=== PATIENT | female | born 1930 | race Caucasian/White ===

== ENCOUNTER 2016-05-10 14:35 | Emergency (ER) | payer MEDICARE, OTHER ==
--- NOTE | 2016-05-21 21:14 | ER ---
ADMIT: 05/10/2016 RM/LOC: ER [facility] MR#: [id number] [address] [address] AR[place]IE [place]Y [address] [place] [address] Emergency Room Report SEX: F AGE: 85 : 1930 DATE: 05/10/2016 ADDENDUM: CHIEF COMPLAINT: Left hip pain. HISTORY OF PRESENT ILLNESS: This is an 85-year-old female who fell 2 days ago. She said she was sitting at a grocery store and in fact she was trying to move them over, and she just lost her balance and tipped forward and fell onto her left hip. She said it has been painful since, but she has been able to walk on it. She mostly has groin pain. X-ray was done of her pelvis and left hip. It is negative for any fracture, over-read by Dr. Baptiste. I am sending her home, having her take Tylenol as needed for pain and follow up with her PCP if worsen. CLAUDIA Beavers / Alphonse Baptiste MD / margarita JOB #: [id number] CC: Alphonse Baptiste MD, Attending Physician
[2016-05-25] MEDS ORDERED: DITROPAN XL5 MG PO (19:32)
[2016-05-25] MEDS ORDERED: FEMARA DPS2.5 MG PO (19:32)
[2016-05-25] MEDS ORDERED: ZOLOFT DPS100 MG PO (19:33)
[2016-05-25] MEDS ORDERED: PRAVACHOL40 MG PO (19:33)
[2016-05-25] MEDS ORDERED: XARELTO10 MG PO (19:33)
[2016-05-25] MEDS ORDERED: TOPROL XL DPS50 MG PO (19:33)
[2016-05-25] MEDS ORDERED: NEURONTIN DPS100 MG PO (19:33)
[2016-05-25] MEDS ORDERED: SENOKOT S1 TAB PO (19:33)
[2016-05-25] MEDS ORDERED: AMBIEN DPS5 MG PO (19:34)
[2016-05-25] MEDS ORDERED: TYLENOL DPS325 MG PO (19:34)
[2016-05-25] MEDS ORDERED: SURFAK DPS240 MG PO (19:34)
[2016-05-25] MEDS ORDERED: ULTRAM DPS50 MG PO (19:35)
== END 2016-05-10 19:35 | disposition home or self-care (01) ==
LOC: ER 14:35
DX: S70.02XA Contusion of left hip, initial encounter (principal); I10 Essential (primary) hypertension; Z85.3 Personal history of malignant neoplasm of breast; Z86.73 Personal history of transient ischemic attack (TIA), and cerebral infarction without residual deficits; Z79.82 Long term (current) use of aspirin; Z79.899 Other long term (current) drug therapy; W18.09XA Striking against other object with subsequent fall, initial encounter; Y92.009 Unspecified place in unspecified non-institutional (private) residence as the place of occurrence of the external cause

== ENCOUNTER 2016-05-21 08:42 | Inpatient (IN) | payer MEDICARE, OTHER ==
[~2016-05-21] VITALS: Ht 157.5 cm; Wt 54.6 kg
--- NOTE | ~2016-05-21 | CO ---
ADMIT: 05/21/2016 RM/LOC: 517 [facility] MR#: [id number] [address] [address] COONEYARNIE [place]ARAJ[place] [address] [place] [address] Consultation SEX: F AGE: 85 : 1930 DATE OF CONSULTATION: 05/21/2016 ATTENDING PHYSICIAN: Alix Simon MD CONSULTING PHYSICIAN: Austyn Velasquez MD SUBJECTIVE: The patient is an 85-year-old white female, who fell last week, had some left hip pain, was seen in the ER. X-rays were taken, she continued to have hip pain. Dr. Simon got an MRI scan, it showed a valgus impacted left femoral neck fracture. PHYSICAL EXAMINATION: The patient is comfortable. She has no shortening or external rotation of the hip. She is able to actually lift her leg, but she does have pain in the groin with any type of rotation. IMAGING DATA: MRI scan shows valgus impacted femoral neck fracture. ASSESSMENT AND PLAN: Left valgus impacted femoral neck fracture. At this point in time, we will plan left hip pinning. The patient understands the risks and benefits of the surgical intervention, and desires to proceed. Austyn Velasquez MD/ modl JOB #: [id number] CC: Alix Simon MD, Attending Physician Alix Simon MD, Family Physician
[2016-05-25] MEDS ORDERED: DITROPAN XL5 MG PO (19:32)
[2016-05-25] MEDS ORDERED: FEMARA DPS2.5 MG PO (19:32)
[2016-05-25] MEDS ORDERED: TOPROL XL DPS50 MG PO (19:33)
[2016-05-25] MEDS ORDERED: XARELTO10 MG PO (19:33)
[2016-05-25] MEDS ORDERED: ZOLOFT DPS100 MG PO (19:33)
[2016-05-25] MEDS ORDERED: SENOKOT S1 TAB PO (19:33)
[2016-05-25] MEDS ORDERED: PRAVACHOL40 MG PO (19:33)
[2016-05-25] MEDS ORDERED: NEURONTIN DPS100 MG PO (19:33)
[2016-05-25] MEDS ORDERED: SURFAK DPS240 MG PO (19:34)
[2016-05-25] MEDS ORDERED: AMBIEN DPS5 MG PO (19:34)
[2016-05-25] MEDS ORDERED: TYLENOL DPS325 MG PO (19:34)
[2016-05-25] MEDS ORDERED: ULTRAM DPS50 MG PO (19:35)
--- NOTE | 2016-05-26 23:26 | DS ---
ADMIT: 05/21/2016 RM/LOC: 517 [facility] MR#: [id number] 2620 [facility] [address] [place] [id number] ARNIE COONEY [address] [place] [address] Discharge Summary SEX: F AGE: 85 : 1930 ADMISSION DATE: 05/21/2016 DISCHARGE DATE: 05/24/2016 DIAGNOSES: 1. Left impacted femoral neck fracture status post pinning. 2. Hypertension. 3. Urine incontinence. 4. History of CVA (cerebrovascular accident). 5. Spinal stenosis. 6. History of breast cancer. PROCEDURE: Left hip pinning 05/21/2016. REASON FOR HOSPITALIZATION: Femoral neck fracture. See dictated H and P. LABORATORY AND X-RAY DATA: Sodium 143, potassium 4.1, chloride 108, CO2 26, BUN 24, creatinine 0.7, blood sugar 93, calcium 8.7, glucose 99 and 103 on Accu-Chek. White count 7.6, hemoglobin 11.7 down to 10.8, platelet count 215. Urine with some blood, otherwise negative. Urine culture was pending at the time of discharge but likely negative. Chest x-ray was negative. COURSE IN HOSPITAL: Arnie is admitted with left hip pain. Found to have a femoral neck fracture. She was taken to surgery on the day of admission, had a pinning performed. Postoperatively, her course was uncomplicated. She did have some episodes of elevated blood pressure likely pain related. Some urinary frequency and incontinence. She has a history of interstitial cystitis, this likely was exacerbated by her Sanchez catheter. Urinalysis was negative. Her hemoglobin was stable. She continued to improve, and on the final day of hospitalization, it was felt that she was not going to be able to care for herself at home as her is not able to assist due to his health problems. For this reason, she will be going to [facility] for continued therapy and strengthening. DISCHARGE INSTRUCTIONS: 1. Ditropan XL 5 mg at bedtime. 2. Femara 2.5 mg at bedtime. 3. Neurontin 300 mg at bedtime. 4. Pravachol 40 mg every 48 hours. ADMIT: 05/21/2016 RM/LOC: 517 [facility] MR#: [id number] 2620 [facility] [address] [place], [place] [address] ARNIE COONEY [address] [place] [address] Discharge Summary SEX: F AGE: 85 : 1930 5. Senokot S one b.i.d. 6. Toprol-XL 50 at bedtime. 7. Xarelto 10 mg daily for 32 days. 8. Zoloft 100 mg at bedtime. 9. Ambien 5 mg 1/2 to 1 every bedtime as needed. 10.Surfak 240 mg b.i.d. p.r.n. 11.Tylenol 650 q.4h p.r.n. 12.Tramadol 50 q.6h p.r.n. 13.Aspirin 81 mg with food daily. DISCHARGE INSTRUCTIONS: She will have an appointment with me in 2-3 weeks. There are no other issues at this time. Time spent 30 minutes. Alix Simon MD/ lori JOB #: [id number] CC: Alix Simon MD, Attending Physician Alix Simon MD, Family Physician
--- NOTE | 2016-05-28 15:54 | OR ---
ADMIT: 05/21/2016 RM/LOC: 517 [facility] MR#: [id number] [address] [address] ARNIE COONEY [address] [place] [address] Operative/Delivery Room Report SEX: F AGE: 85 : 1930 SURGERY DATE: 05/21/2016 SURGEON: Austyn Velasquez MD PREOPERATIVE DIAGNOSIS: Left impacted femoral neck fracture. POSTOPERATIVE DIAGNOSIS: Left impacted femoral neck fracture. PROCEDURE PERFORMED: Left hip percutaneous pinning. ANESTHESIA: General. ESTIMATED BLOOD LOSS: Minimal. FLUIDS: Per Anesthetic record. COMPLICATIONS: None. DRAINS: None. CONDITION ON DISCHARGE: The patient returned to the recovery room in fair condition. INDICATIONS: The patient sustained a left valgus impacted femoral neck fracture a week ago. Continued to have pain, had MRI scan to confirm this. I felt the best thing to do would be pin this in place to avoid any displacement and allow proper healing. She understood the risks and benefits of procedure and desired to proceed with the operation. The patient was taken to the OR, transferred to traction table, well-padded and perineal post placed between her legs. The left lower extremity placed in a well-padded traction boot. We did not apply traction to the fracture. Again, it was in a valgus-impacted position. It was reduced under C-arm guidance and maintained its position. I then prepped and draped the left hip. I made a stab incision over the ADMIT: 05/21/2016 RM/LOC: 517 [facility] MR#: [id number] [address] [address] ARNIE COONEY [address] [place] [address] Operative/Delivery Room Report SEX: F AGE: 85 : 1930 proximal lateral femur, just distal to greater trochanter and drove the guide pin. On AP view, just above the center of the head and on lateral view, right in the center of the head measured over reamed and placed a 75 mm cannulated screw, squeezing down the fracture and getting good purchase. I then, through 2 more stab incisions, one anterior-inferior and one posterior inferior to my 1st one placed 2 more 75 mm partially-threaded screws in a similar fashion. Once all the screws were placed, C-arm guidance was used and confirmed excellent alignment. Wounds were thoroughly irrigated with bacitracin solution. The subcutaneous tissues were closed using 2-0 Vicryl. Skin closed using sydnee. Wounds were washed, dried, dressed with sterile Adaptic, 4x4s, ABD, Medipore tape. Drapes removed. The patient reversed from general anesthesia, transferred back to the recovery room in fair condition. Austyn Velasquez MD/ margarita JOB #: [id number] CC: Alix Simon MD, Attending Physician Alix Simon MD, Family Physician
--- NOTE | 2016-06-04 14:03 | CO ---
ADMIT: 05/21/2016 RM/LOC: 517 [facility] MR#: [id number] 2620 [facility] [address] [place] [phone] ALEXUS COONEYARCHIE [place] [address] [place] [address] Consultation Report SEX: F AGE: 85 : 1930 CORRECTED: 05/22/2016 0911 [facility] DATE OF CONSULTATION: 05/21/2016 ATTENDING PHYSICIAN: Alix Simon MD CONSULTING PHYSICIAN: Austyn Velasquez MD CHIEF COMPLAINT: Left groin pain. HISTORY OF PRESENT ILLNESS: The patient is an 85-year-old female coming in, directly admitted by Dr. Simon for a left hip fracture. About two weeks ago, on May 08, she fell at her home on her left side. She went to the ER two days later on May 10. There, she received radiographs and a CT scan of her hip and pelvis. The ER physician sent her home afterwards with pain medications and told her to follow up with her family practice doctor if the pain did not get better. She has been bearing weight on her left hip and has not received any relief since she hurt it two weeks ago. Yesterday, she followed up with her family practice doctor, Dr. Simon, because of the persistent pain. Dr. Simon proceeded to get x-rays and an MRI, which showed the left hip fracture. The patient was admitted today for evaluation and treatment of her left hip fracture. PAST MEDICAL HISTORY: Significant for: 1. Depression. 2. High blood pressure. 3. Pain. 4. Breast cancer. 5. Overactive bladder disease. 6. High cholesterol. 7. History of stroke. MEDICATIONS: 1. Sertraline 100 mg at bedtime. 2. Metoprolol succinate ER 100 mg at bedtime. 3. Gabapentin 100 mg twice daily. 4. Letrozole 2.5 mg at bedtime. 5. Oxybutynin ER 5 mg at bedtime. 6. Pravastatin 40 mg at bedtime. 7. Fish oil 1000 mg at bedtime. 8. Multivitamin at bedtime. 9. Aspirin 81 mg at bedtime. ALLERGIES: QUINOLONES, LATEX, AND CODEINE. SOCIAL HISTORY: The patient lives at home with her . PHYSICAL EXAMINATION: MUSCULOSKELETAL: Shows tenderness to palpation to the left greater trochanter area as well as groin area. There is not much pain to ADMIT: 05/21/2016 RM/LOC: 517 [facility] MR#: [id number] [address] [address] ARNIE COONEY [address] [place] [address] Consultation Report SEX: F AGE: 85 : 1930 palpation anywhere else in the hip or the left lower extremity. The patient does have some pain with range of motion including flexion of the hip, internal rotation, and external rotation, but she is not extremely limited during range of motion of the hip due to pain. IMAGING: X-ray show a nondisplaced valgus-impacted left femoral neck fracture. ASSESSMENT AND PLAN: Left valgus-impacted femoral neck fracture. At this point, Dr. Velasquez plans on taking the patient to the OR suite for a left hip pinning. The patient finished breakfast around 10:00 a.m. and will be waiting 6 to 8 hours n.p.o. before surgery. She will be medically cleared by Dr. Simon, who will provide postoperative care as well as an in-depth H and P for the patient. Risks, benefits, and alternatives were discussed with the patient and her family, and she elected to proceed with the procedure. CLAUDIA Swanson / Austyn Velasquez MD / margarita JOB #: [id number] CC: Alix Simon MD, Attending Physician Alix Simon MD, Family Physician CORRECTED: 05/22/2016 0911 [facility]
== END 2016-05-24 10:22 | DRG 482 ==
LOC: RAD.S 08:42 → 5MS 10:50
PROVIDERS: ADMIT Internal Medicine
PROC: 0QS734Z Reposition Left Upper Femur with Internal Fixation Device, Percutaneous Approach (ICD-10-PCS; principal; 2016-05-21)
DX: S72.002A Fracture of unspecified part of neck of left femur, initial encounter for closed fracture (principal); I10 Essential (primary) hypertension; E78.2 Mixed hyperlipidemia; M48.06 Spinal stenosis, lumbar region; W19.XXXA Unspecified fall, initial encounter; R32 Unspecified urinary incontinence; F32.9 Major depressive disorder, single episode, unspecified; N32.81 Overactive bladder; E78.00 Pure hypercholesterolemia, unspecified; Z79.82 Long term (current) use of aspirin; Z85.3 Personal history of malignant neoplasm of breast; Z86.73 Personal history of transient ischemic attack (TIA), and cerebral infarction without residual deficits